=== PATIENT | male | born 1960 | race Hispanic/Latino ===

== ENCOUNTER 2018-02-03 10:11 | Emergency (ER) | payer OTHER ==
[~2018-02-03 10:11] MED LIST: CYAN250014 PO; MULT-1203 PO; RANI-248 PO
== END 2018-02-03 10:58 | disposition home or self-care (01) ==
LOC: EDH 10:11
DX: S49.81XA Other specified injuries of right shoulder and upper arm, initial encounter (principal); Z98.890 Other specified postprocedural states; Z72.0 Tobacco use; X50.9XXA Other and unspecified overexertion or strenuous movements or postures, initial encounter; Y93.89 Activity, other specified; Y92.098 Other place in other non-institutional residence as the place of occurrence of the external cause; Y99.8 Other external cause status
CPT/HCPCS: 73030

== ENCOUNTER → 2018-07-26 | Outpatient (CLI) | payer OTHER ==
[2018-07-26 08:46] LABS: HEMOGLOBIN A1C 5.5 % (4.0-6.0)
[2018-07-26 08:54] LABS: THYROID STIMULATING HORMONE 1.27 uIU/mL (0.36-3.74)
[2018-07-26 09:00] LABS: BILIRUBIN,TOTAL 0.7 mg/dL (0.2-1.0); CREATININE 0.9 mg/dL (0.5-1.5); POTASSIUM 4.1 mmol/L (3.5-5.1); TOTAL PROTEIN, SERUM 7.6 g/dL (6.0-8.3)
== END | disposition home or self-care (01) ==
LOC: LAB 07:44
PROVIDERS: ATTEND Internal Medicine
DX: Z12.5 Encounter for screening for malignant neoplasm of prostate (principal); R73.09 Other abnormal glucose; R53.83 Other fatigue; Z72.89 Other problems related to lifestyle
CPT/HCPCS: 36415; 80053; 80061; 83036; 84153; 84154; 84443